=== PATIENT | male | born 1980 ===

== ENCOUNTER 2017-01-29 04:57 | Emergency (ER) | payer OTHER, BC ==
[2017-01-29 05:05] VITALS: BP 131/95; PULSE 78; RESP 18; TEMP 98.1; O2SAT 98
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
== END 2017-01-29 06:45 | disposition home or self-care (01) ==
LOC: H.ER 04:57
DX: S62.309A Unspecified fracture of unspecified metacarpal bone, initial encounter for closed fracture (principal); V43.52XA Car driver injured in collision with other type car in traffic accident, initial encounter; Y92.410 Unspecified street and highway as the place of occurrence of the external cause; Y99.0 Civilian activity done for income or pay; I10 Essential (primary) hypertension; Z88.0 Allergy status to penicillin